=== PATIENT | male | born 1980 ===

== ENCOUNTER 2018-07-13 21:35 | Emergency (ER) | payer OTHER ==
[~2018-07-13] VITALS: Ht 182.9 cm; Wt 83.9 kg
[2018-07-13 22:11] LABS: BASOPHILS # (AUTO) 0.1 K/uL (0.0-8.0); BASOPHILS % (AUTO) 0.8 % (0.0-2.0); EOSINOPHILS # (AUTO) 0.2 K/uL (0.0-0.7); HEMATOCRIT 43.7 % (36.7-47.1); HEMOGLOBIN 14.7 g/dL (12.5-16.3); LYMPHOCYTES # (AUTO) 1.7 K/uL (20.0-40.0); LYMPHOCYTES % (AUTO) 22.3 % (20.5-51.5); MEAN CORPUSCULAR HEMOGLOBIN 30.5 uug (23.8-33.4); MEAN CORPUSCULAR HGB CONC 34 g/dL (32.5-36.3); MEAN CORPUSCULAR VOLUME 90.8 fL (73.0-96.2); MONOCYTES # (AUTO) 0.9 K/uL (2.0-10.0); MONOCYTES % (AUTO) 11.5 % (0.0-11.0); NEUTROPHILS % (AUTO) 63.4 % (38.5-71.5); PLATELET COUNT (AUTO) 238 K/uL (152-348); RED BLOOD CELL COUNT(AUTO) 4.81 MIL/uL (4.06-5.63); WHITE BLOOD COUNT (AUTO) 7.8 K/uL (3.6-10.2)
--- NOTE | 2018-07-13 22:11 | NUR ---
Pt bib rescue accompanied by police. Police received phone call due to pt wandering on other people's yards. Pt speaks very loud, inappropriate behavior.
[2018-07-13 22:31] LABS: ALANINE AMINOTRANSFERASE 44 U/L (16-63); ALKALINE PHOSPHATASE 66 U/L (50-136); ASPARTATE AMINOTRANSFERASE 31 U/L (15-37); BILIRUBIN,DIRECT 0.1 mg/dL (0.0-0.2); BILIRUBIN,TOTAL 0.3 mg/dL (0.2-1.0); CARBON DIOXIDE 29 mmol/L (21-32); CHLORIDE 102 mmol/L (98-107); GLUCOSE 99 mg/dL (74-106); POTASSIUM 4.1 mmol/L (3.5-5.1); UREA NITROGEN, BLOOD 16 mg/dL (7-18)
[2018-07-13 22:33] LABS: ACETAMINOPHEN < 2.0 ug/mL (10-30)
[2018-07-13 22:52] LABS: ETHANOL < 3 MG/DL (0-0)
--- NOTE | 2018-07-14 00:48 | NUR ---
Pt sleeping comfortably in bed with eyes closed. VSS. NAD noted.
[2018-07-14 01:07] LABS: *BILIRUBIN,URIN NEGATIVE (NEGATIVE); *BLOOD, URINE NEGATIVE (NEGATIVE); *CLARITY,URINE CLEAR (CLEAR); *COLOR,URINE YELLOW (YELLOW); *KETONES,URINE NEGATIVE (NEGATIVE); *PROTEIN,URINE NEGATIVE (NEGATIVE); *UROBILINOGEN,URINE 0.2 E.U./dl (NORMAL); LEUKOCYTE ESTERASE ,URINE NEGATIVE (NEGATIVE); NITRITE, URINE NEGATIVE (NEGATIVE); UGLUCOSE NEGATIVE (NEGATIVE)
[2018-07-14 01:15] LABS: BACTERIA,URINE NONE SEEN /HPF (NONE SEEN); RBC,URINE 0-3 /HPF (0-3); SQUAMOUS EPITHELIAL CELL,UR FEW /HPF (NONE SEEN); WBC,URINE 0-3 /HPF (0-3)
[2018-07-14 01:19] LABS: *AMPHETAMINE, URINE NEGATIVE (NEGATIVE); *BARBITURATE, URINE NEGATIVE (NEGATIVE); *CANNABINOID, URINE POSITIVE (NEGATIVE); *COCCAINE, URINE NEGATIVE (NEGATIVE); *OPIATE, URINE NEGATIVE (NEGATIVE); *PHENCYCLIDINE SCREEN,URINE NEGATIVE (NEGATIVE)
[2018-07-14] MEDS: OLANZAPINE 5 MG TABLET PO ONE (03:28)
[2018-07-14] MEDS ORDERED: OLANZAPINE 5 MG TABLET ONE (03:29)
[2018-07-14] MEDS ORDERED: diphenhydrAMINE 50 MG/1 ML VIAL ONE (03:42)
[2018-07-14] MEDS ORDERED: OLANZAPINE 10 MG VIAL IM ONE (03:43)
[2018-07-14] MEDS: OLANZAPINE 10 MG VIAL IM ONE (03:44)
[2018-07-14] MEDS: diphenhydrAMINE 50 MG/1 ML VIAL IM ONE (03:44)
--- NOTE | 2018-07-14 05:18 | NUR ---
Pt awake, went up to use restroom, requesting food.
--- NOTE | 2018-07-14 06:59 | NUR ---
Called Rancho Rodney LCSW, for PET eval. ETA 1 hr.
--- NOTE | 2018-07-14 07:27 | NUR ---
patient is sleeping.. in no distress..
--- NOTE | 2018-07-14 08:21 | NUR ---
Racnho Rodney CUSTOMER QUALITY SPECIALIST here to evaluate patient.
--- NOTE | 2018-07-14 08:22 | NUR ---
Patient is awake and alert speaking to Rancho...
[2018-07-14] MEDS ORDERED: LORAZEPAM 2 MG/1 ML VIAL ONE (09:04)
[2018-07-14] MEDS ORDERED: HALOPERIDOL LACTATE 5 MG/1 ML VIAL ONE (09:05)
[2018-07-14] MEDS: HALOPERIDOL LACTATE 5 MG/1 ML VIAL IM ONE (09:06)
[2018-07-14] MEDS: LORAZEPAM 2 MG/1 ML VIAL IM ONE (09:06)
--- NOTE | 2018-07-14 09:13 | NUR ---
patient is walking out of the room and entering other patient rooms. He is saying he will go outside. Security called to bedside. I ensured patient of his safety and brought him some juice. Medication given as ordered by other RN.
--- NOTE | 2018-07-14 10:24 | NUR ---
Patient is slepy but arouses easy. [facility] [place] Report given to N[place]un at [phone].
--- NOTE | 2018-07-14 10:34 | NUR ---
AWAITING FOR AMBULANCE ARRIVAL TO TRANSFER PATIENT. PATIENT IS SLEEPY BUT AROUSES EASY.
--- NOTE | 2018-07-14 11:29 | NUR ---
AMBULANCE CO CALLED [facility] HERE TO TRANSPORT PATIENT TO [facility]. PATIENT IS NOW AWAKE AND ALERT, HE IS COOPERATIVE. VITAL SIGNS STABLE.
== END 2018-07-14 11:31 | disposition short-term general hospital (02) ==
LOC: ER 21:40
DX: F29 Unspecified psychosis not due to a substance or known physiological condition (principal)
CPT/HCPCS: 36415; 80307; 85025; A4663; G0480; G0480-TC; J1200; J1630; J2060; J2358